=== PATIENT | female | born 1960 | race Caucasian/White ===

== ENCOUNTER 2022-01-27 08:22 | Day surgery (SDC) | payer OTHER ==
[~2022-01-27] VITALS: Ht 167.6 cm; Wt 84.6 kg
[~2022-01-27 08:22] MED LIST: CONEST.625 PO; Cyclobenzaprine5 MG PO; IBUP800 PO; LEVSOD50 PO; NASACORT10.8 ML; PROG100 PO; Percocet 5-3251 EACH PO
[2022-01-27] MEDS ORDERED: L-Lysine500 M1 (08:47)
[2022-01-27] MEDS ORDERED: C COMPLEX1000 M2 (08:47)
[2022-01-27] MEDS ORDERED: MAGNESIUM OXID500 MG (08:47)
[2022-01-27] MEDS ORDERED: LORA10ER (08:47)
[2022-01-27] MEDS ORDERED: MULVITA (08:48)
[2022-01-27] MEDS ORDERED: MELATONIN1 M1 (08:48)
== END 2022-01-27 10:45 | disposition home or self-care (01) ==
LOC: ORSCSDS 08:22
PROVIDERS: Internal Medicine Gastroenterology
PROC: 0DBH8ZX Excision of Cecum, Via Natural or Artificial Opening Endoscopic, Diagnostic (ICD-10-PCS; principal; 2022-01-27 09:45)
DX: Z12.11 Encounter for screening for malignant neoplasm of colon (principal); Z86.010 Personal history of colon polyps; D12.0 Benign neoplasm of cecum; K57.30 Diverticulosis of large intestine without perforation or abscess without bleeding; E66.9 Obesity, unspecified; Z68.30 Body mass index [BMI] 30.0-30.9, adult; Z79.891 Long term (current) use of opiate analgesic
CPT/HCPCS: 88305; J2704; J7120

== ENCOUNTER → 2024-04-25 | Outpatient (CLI) | payer OTHER ==
[~2024-04-25] MED LIST changes: +C COMPLEX1000 M2; +L-Lysine500 M1; +LORA10ER; +MAGNESIUM OXID500 MG; +MELATONIN1 M1; +MULVITA
[2024-05-06 12:19] LABS: HPV HIGH RISK BY TMA Not Detected; HPV SOURCE Cervical
== END ==
LOC: LAB SHORT 10:46 → LAB 10:46
PROVIDERS: Advanced Practice Midwife
DX: Z01.419 Encounter for gynecological examination (general) (routine) without abnormal findings (principal)
CPT/HCPCS: 87624; G0123